=== PATIENT | male | born 1960 | race African-American/Black ===

== ENCOUNTER 2019-05-23 19:23 | Inpatient (IN) | payer MEDICARE, OTHER ==
[~2019-05-23] VITALS: Ht 185.4 cm; Wt 94.3 kg
--- NOTE | 2019-05-23 19:35 | NUR ---
Dr. Hunter at bedside for MSE.
[2019-05-23] MEDS ORDERED: HYDROCODONE/APAP 10-325 MG TABLET PO ONE (19:45)
[2019-05-23] MEDS ORDERED: LORAZEPAM 0.5 MG TABLET PO ONE (19:45)
[2019-05-23] MEDS ORDERED: HALOPERIDOL LACTATE 5 MG/1 ML VIAL IV ONE (19:45)
[2019-05-23] MEDS ORDERED: CLON0.5T PO (19:48)
[2019-05-23] MEDS ORDERED: RISP3TAB5 PO (19:48)
[2019-05-23] MEDS ORDERED: QUET200T PO (19:48)
[2019-05-23] MEDS ORDERED: LORAZEPAM 1 MG TABLET ONE (19:55)
[2019-05-23] MEDS ORDERED: HYDROCODONE/APAP 10-325 MG TABLET ONE (19:55)
--- NOTE | 2019-05-23 19:55 | NUR ---
Xray at bedside.
[2019-05-23 19:56] LABS: BASOPHILS % (AUTO) 0.5 % (0.0-2.0); EOSINOPHILS # (AUTO) 0.1 K/uL (0.0-0.7); EOSINOPHILS % (AUTO) 0.7 % (0.0-7.0); HEMATOCRIT 41.2 % (36.7-47.1); HEMOGLOBIN 13.9 g/dL (12.5-16.3); LYMPHOCYTES # (AUTO) 2.3 K/uL (20.0-40.0); LYMPHOCYTES % (AUTO) 28.6 % (20.5-51.5); MEAN CORPUSCULAR HEMOGLOBIN 31.5 uug (23.8-33.4); MEAN CORPUSCULAR HGB CONC 34 g/dL (32.5-36.3); MEAN CORPUSCULAR VOLUME 93.1 fL (73.0-96.2); MONOCYTES # (AUTO) 0.8 K/uL (2.0-10.0); MONOCYTES % (AUTO) 9.7 % (0.0-11.0); NEUTROPHILS % (AUTO) 60.5 % (38.5-71.5); PLATELET COUNT (AUTO) 236 K/uL (152-348); RED BLOOD CELL COUNT(AUTO) 4.42 MIL/uL (4.06-5.63); WHITE BLOOD COUNT (AUTO) 8.2 K/uL (3.6-10.2)
[2019-05-23] MEDS ORDERED: HALOPERIDOL LACTATE 5 MG/1 ML VIAL ONE (19:57)
[2019-05-23] MEDS ORDERED: IV NORMAL SALINE 1000 ML BAG IV ONE (20:00)
[2019-05-23 20:05] LABS: CARBON DIOXIDE 23 mmol/L (21-32); CHLORIDE 106 mmol/L (98-107); CREATININE 0.9 mg/dL (0.6-1.3); GLUCOSE 226 mg/dL (74-106); POTASSIUM 3.4 mmol/L (3.5-5.1); UREA NITROGEN, BLOOD 17 mg/dL (7-18)
[2019-05-23 20:07] LABS: ETHANOL < 3 MG/DL (0-0)
[2019-05-23 20:09] LABS: ALANINE AMINOTRANSFERASE 25 U/L (16-63); ALKALINE PHOSPHATASE 72 U/L (50-136); ASPARTATE AMINOTRANSFERASE 22 U/L (15-37); BILIRUBIN,DIRECT 0.1 mg/dL (0.0-0.2); BILIRUBIN,TOTAL 0.4 mg/dL (0.2-1.0); TOTAL PROTEIN, SERUM 7.3 g/dL (6.4-8.2)
[2019-05-23 20:10] LABS: ACETAMINOPHEN < 2.0 ug/mL (10-30)
--- NOTE | 2019-05-23 20:20 | NUR ---
Pt medically cleared by Dr. Hunter
[2019-05-23 20:23] LABS: THYROID STIMULATING HORMONE 3.151 mIU/mL (0.358-3.740)
[2019-05-23] MEDS ORDERED: POTASSIUM CHLORIDE 20 MEQ TAB.PRT.SR PO ONE (20:30)
[2019-05-23] MEDS ORDERED: POTASSIUM CHLORIDE 20 MEQ TAB.PRT.SR ONE (20:32)
--- NOTE | 2019-05-23 21:41 | NUR ---
Report given to Zane JAMISON Vita.
[2019-05-23 22:02] VITALS: BP 168/90
--- NOTE | 2019-05-23 22:05 | NUR ---
GPS: 59 years old male admitted from ER under Dr. MARSH for 5150 DTO/GD to MHU via w/c. Patient is alert and oriented x3 ambulatory,cooperative with care.patient noted disorganized. no c/o pain or discomfort at this time. patient blood pressure 168/90 hr 104,resp 20 temp 98.4 sat 96% in room air. Blood sugar 252mg/dl. ABNORMAL V/S AND BLOOD SUGAR result notified to Dr. SIMI FIGUEROA via phone.assisted patient in bed.continue monitoring for safety.
[2019-05-23] MEDS ORDERED: ACETAMINOPHEN 325 MG TABLET PO PRN (22:15)
[2019-05-23] MEDS ORDERED: CLONAZEPAM 0.5 MG TABLET PO PRN (22:15)
[2019-05-23] MEDS ORDERED: MAGNESIUM HYDROXIDE 30 ML LIQUID UDC PO PRN (22:15)
[2019-05-23] MEDS ORDERED: MAG HYDROX/AL HYDROX/SIMETH 30 ML LIQUID UDC PO PRN (22:15)
[2019-05-23] MEDS ORDERED: TEMAZEPAM 7.5 MG CAPSULE PO PRN (22:15)
[2019-05-23] MEDS ORDERED: BLOOD SUGAR DIAGNOSTIC 1 EACH STRIP VI ONE (22:15)
--- NOTE | 2019-05-23 23:05 | NUR ---
GPS: Dr. keller did not give any order for new admission patient blood sugar 252mg/dl. and high blood pressure 168/90,hr 104. charge nurse made him aware via phone call.
--- NOTE | 2019-05-24 06:13 | NUR ---
GPS: Remain calm and cooperative. no behavior problem noted. self care. took showered. ambulating in hallway. slept 6:30 hrs through the night. continue plan of care.
[2019-05-24 07:30] VITALS: BP 154/82
[2019-05-24] MEDS: DIVALPROEX 250 MG TABLET.DR PO SCH ×3 (12:16→20:06)
[2019-05-24] MEDS: OLANZAPINE ZYDIS 5 MG TAB.RAPDIS PO SCH ×2 (12:16→17:28)
[2019-05-24] MEDS ORDERED: DEXTROSE 50% 50 ML DISP.SYRIN IV PRN (14:00)
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
--- NOTE | 2019-05-24 15:05 | NUR ---
FIREARMS REPORT: [employer] Consultant completed and submitted a [facility] firearms report for 5150 DTO and GD certification. A copy of report has been placed in patient chart.
[2019-05-24 16:00] VITALS: BP 157/86
[2019-05-24] MEDS: BLOOD SUGAR DIAGNOSTIC 1 EACH STRIP VI SCH ×2 (17:22→20:13)
[2019-05-24] MEDS: INSULIN REGULAR, HUMAN 300 UNIT/3 ML VIAL SQ PRN ×2 (17:26→20:16)
[2019-05-24 20:00] VITALS: BP 156/96
[2019-05-25] MEDS: BLOOD SUGAR DIAGNOSTIC 1 EACH STRIP VI SCH ×4 (06:47→20:03)
[2019-05-25 07:30] VITALS: BP 162/96
[2019-05-25] MEDS: OLANZAPINE ZYDIS 5 MG TAB.RAPDIS PO SCH ×2 (08:06→17:21)
[2019-05-25] MEDS: DIVALPROEX 250 MG TABLET.DR PO SCH ×4 (08:07→20:03)
[2019-05-25] MEDS: INSULIN REGULAR, HUMAN 300 UNIT/3 ML VIAL SQ PRN ×2 (08:12→13:09)
[2019-05-25] MEDS ORDERED: DEXTROSE 50% 50 ML DISP.SYRIN IV PRN (14:15)
[2019-05-25] MEDS: AMLODIPINE 5 MG TABLET PO SCH (15:37)
[2019-05-25 15:44] VITALS: BP 159/87
[2019-05-25] MEDS: INSULIN REGULAR, HUMAN 300 UNITS/3 ML VIAL SQ PRN (20:02)
--- NOTE | 2019-05-25 20:49 | NUR ---
Dr Wolff paged regarding Pt's elevated BP. Awaiting response.
--- NOTE | 2019-05-25 20:53 | NUR ---
Clonidine patch 0.1 mg ordered
[2019-05-25] MEDS ORDERED: CLONIDINE-TTS 1 PATCH TD SCH (21:00)
[2019-05-25 21:04] VITALS: BP 181/89
[2019-05-25 21:09] VITALS: BP 181/89
[2019-05-25] MEDS ORDERED: CLONIDINE-TTS 1 PATCH TD ONE (21:22)
--- NOTE | 2019-05-25 21:28 | NUR ---
Pt offered Clonidine patch and awoke irritable and refused patch. Will re-offer.
--- NOTE | 2019-05-26 05:58 | NUR ---
Pt refused BP check this morning, remains irritable. Denies any s/s related to elevated BP.
[2019-05-26] MEDS: BLOOD SUGAR DIAGNOSTIC 1 EACH STRIP VI SCH ×4 (06:39→20:16)
--- NOTE | 2019-05-26 06:39 | NUR ---
Pt again refused clonidine patch when offered, stated, "I'm only here for placement."
[2019-05-26 07:30] VITALS: BP 163/90
[2019-05-26] MEDS: OLANZAPINE ZYDIS 5 MG TAB.RAPDIS PO SCH (08:51)
[2019-05-26] MEDS: AMLODIPINE 5 MG TABLET PO SCH (08:52)
[2019-05-26] MEDS: DIVALPROEX 250 MG TABLET.DR PO SCH ×4 (08:52→20:05)
[2019-05-26] MEDS: INSULIN REGULAR, HUMAN 300 UNIT/3 ML VIAL SQ PRN ×3 (08:59→16:23)
[2019-05-26] MEDS ORDERED: AMLODIPINE 5 MG TABLET PO SCH (09:00)
[2019-05-26 15:10] VITALS: BP 176/99
[2019-05-26] MEDS: OLANZAPINE 5 MG TABLET PO SCH (20:04)
--- NOTE | 2019-05-26 20:59 | NUR ---
GPS: B/P 170/77 HR 92 .L made aware via phone, Received ordere clonidine 0.1 mg po x1. charge nurse aware.
[2019-05-26] MEDS ORDERED: CLONIDINE HCL 0.1 MG TABLET PO ONE (21:00)
[2019-05-26] MEDS ORDERED: INSULIN GLARGINE,HUM 300 UNITS/3 ML CARTRIDGE SQ SCH (21:00)
[2019-05-26 21:45] VITALS: BP 170/77
[2019-05-26 22:50] VITALS: BP 145/79
[2019-05-27] MEDS: BLOOD SUGAR DIAGNOSTIC 1 EACH STRIP VI SCH ×4 (06:24→20:51)
--- NOTE | 2019-05-27 06:32 | NUR ---
GPS: Remain calm and cooperative. no behavior problem noted. self care. resting in bed comfortably. slept 8 hrs through the night. continue plan of care.
[2019-05-27 07:30] VITALS: BP 140/73
[2019-05-27] MEDS: DIVALPROEX 250 MG TABLET.DR PO SCH ×4 (09:29→20:34)
[2019-05-27] MEDS: AMLODIPINE 5 MG TABLET PO SCH (09:30)
[2019-05-27] MEDS: OLANZAPINE ZYDIS 5 MG TAB.RAPDIS PO SCH (09:30)
[2019-05-27] MEDS: INSULIN REGULAR, HUMAN 300 UNIT/3 ML VIAL SQ PRN ×2 (09:35→12:51)
[2019-05-27 15:15] VITALS: BP 126/106
[2019-05-27 20:00] VITALS: BP 167/78
[2019-05-27] MEDS: OLANZAPINE 5 MG TABLET PO SCH (20:34)
[2019-05-27] MEDS: INSULIN REGULAR, HUMAN 300 UNITS/3 ML VIAL SQ PRN (20:38)
[2019-05-27] MEDS: INSULIN GLARGINE,HUM 300 UNITS/3 ML CARTRIDGE SQ SCH (20:39)
--- NOTE | 2019-05-27 22:48 | NUR ---
Pt easily irritated and selectively cooperative with care and medication administration. BP elevated 167/78, HR 61. Pt refused Clonodine 0.1mg PO prn for SBP>160. Pt refused BP re-check and became more irritable when asked. Pt denies ant s/s r/t elevated BP. HS BS 177, 3 units coverage administered per SS, and 12 units Lantus per MD order. Will continue to monitor.
[2019-05-28] MEDS: BLOOD SUGAR DIAGNOSTIC 1 EACH STRIP VI SCH ×4 (07:27→20:35)
[2019-05-28 07:30] VITALS: BP 161/80
[2019-05-28] MEDS: OLANZAPINE ZYDIS 5 MG TAB.RAPDIS PO SCH (08:44)
[2019-05-28] MEDS: AMLODIPINE 5 MG TABLET PO SCH (08:44)
[2019-05-28] MEDS: DIVALPROEX 250 MG TABLET.DR PO SCH ×4 (08:45→20:36)
[2019-05-28] MEDS: CLONIDINE HCL 0.1 MG TABLET PO PRN ×2 (08:45→16:32)
[2019-05-28 16:11] VITALS: BP 173/90
[2019-05-28] MEDS: INSULIN REGULAR, HUMAN 300 UNIT/3 ML VIAL SQ PRN (16:31)
[2019-05-28 20:03] VITALS: BP 151/79
[2019-05-28] MEDS: OLANZAPINE 5 MG TABLET PO SCH (20:36)
[2019-05-28] MEDS: INSULIN GLARGINE,HUM 300 UNITS/3 ML CARTRIDGE SQ SCH (20:39)
[2019-05-28] MEDS: INSULIN REGULAR, HUMAN 300 UNITS/3 ML VIAL SQ PRN (20:42)
[2019-05-29] MEDS: BLOOD SUGAR DIAGNOSTIC 1 EACH STRIP VI SCH ×4 (06:42→20:48)
[2019-05-29 07:30] VITALS: BP 135/69
[2019-05-29] MEDS: DIVALPROEX 250 MG TABLET.DR PO SCH ×4 (09:38→20:45)
[2019-05-29] MEDS: AMLODIPINE 5 MG TABLET PO SCH (09:39)
[2019-05-29] MEDS: OLANZAPINE ZYDIS 5 MG TAB.RAPDIS PO SCH (09:39)
[2019-05-29] MEDS: INSULIN REGULAR, HUMAN 300 UNIT/3 ML VIAL SQ PRN ×2 (12:37→17:04)
[2019-05-29 16:00] VITALS: BP 163/81
[2019-05-29 19:00] VITALS: BP 173/69
[2019-05-29] MEDS: CLONIDINE HCL 0.1 MG TABLET PO PRN (19:00)
[2019-05-29] MEDS: OLANZAPINE 5 MG TABLET PO SCH (20:45)
[2019-05-29] MEDS: INSULIN GLARGINE,HUM 300 UNITS/3 ML CARTRIDGE SQ SCH (20:47)
[2019-05-29] MEDS: INSULIN REGULAR, HUMAN 300 UNITS/3 ML VIAL SQ PRN (20:51)
[2019-05-29 21:31] VITALS: BP 140/91
--- NOTE | 2019-05-29 22:00 | NUR ---
received to care, watching tv, pleasant upon approach. no aggressive behavior noted. interacts minimally with peers. compliant with medications and staff direction. bedtime snack given. as of 2200, he appears to be asleep. no distress noted. will continue to monitor closely.
[2019-05-30] MEDS: BLOOD SUGAR DIAGNOSTIC 1 EACH STRIP VI SCH ×5 (06:48→20:35)
--- NOTE | 2019-05-30 06:49 | NUR ---
slept fairly well, last night. this morning, he refused his am blood sugar check. is now angry, and easily agitated. states he is angry, because he doesn't feel he needs to be in the hospital.currently lying in bed, quietly.
[2019-05-30 07:30] VITALS: BP 159/83
[2019-05-30] MEDS: DIVALPROEX 250 MG TABLET.DR PO SCH ×4 (08:30→20:18)
[2019-05-30] MEDS: AMLODIPINE 5 MG TABLET PO SCH (08:30)
[2019-05-30] MEDS: OLANZAPINE ZYDIS 5 MG TAB.RAPDIS PO SCH (08:31)
[2019-05-30] MEDS: INSULIN REGULAR, HUMAN 300 UNIT/3 ML VIAL SQ PRN ×2 (08:33→12:12)
[2019-05-30 16:05] VITALS: BP 142/88
[2019-05-30 20:00] VITALS: BP 175/79
[2019-05-30] MEDS: OLANZAPINE 5 MG TABLET PO SCH (20:18)
[2019-05-30] MEDS: CLONIDINE HCL 0.1 MG TABLET PO PRN (20:20)
[2019-05-30] MEDS: INSULIN GLARGINE,HUM 300 UNITS/3 ML CARTRIDGE SQ SCH (20:38)
[2019-05-30 22:00] VITALS: BP 149/82
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
--- NOTE | 2019-05-30 22:00 | NUR ---
ELEVATED B/P: b/p was 175/79, at 1999. PRN catapres was given at 2019. as of 2199, it is now 149/82.
[2019-05-30 22:33] VITALS: BP 175/79
[2019-05-31] MEDS: BLOOD SUGAR DIAGNOSTIC 1 EACH STRIP VI SCH ×2 (06:35→11:58)
[2019-05-31] MEDS: INSULIN REGULAR, HUMAN 300 UNIT/3 ML VIAL SQ PRN ×2 (08:17→12:15)
[2019-05-31 08:30] VITALS: BP 167/86
[2019-05-31] MEDS: DIVALPROEX 250 MG TABLET.DR PO SCH ×2 (08:33→12:16)
[2019-05-31] MEDS: AMLODIPINE 5 MG TABLET PO SCH (08:33)
[2019-05-31] MEDS: OLANZAPINE ZYDIS 5 MG TAB.RAPDIS PO SCH (08:33)
--- NOTE | 2019-05-31 10:08 | NUR ---
Discharge Note: Patient will be discharged today to [facility] [[address] [place] [address]; ].Please arrange ambulance for this patient at 1:00pm. Spoke to Radha, Motor Scooter Mechanic � who stated facility is ready to accept patient today. Spoke with patient�s LPS conservator � Janneth Maynard [[phone]] who is agreeable with discharge plan. Waxer also informed patient�s [facility] Waxer Emilee Rose [[phone]] for continuity of care. Patient is alert and oriented x3-4. Patient will follow up with Dr. Wolff (Card Sorter) and Dr. Jackson (Psychiatrist). Patient was provided with outpatient mental health resources to [facility] , [facility] Smallwood , and the National Suicide Prevention Lifeline .
--- NOTE | 2019-05-31 11:34 | NUR ---
Gps/Classified Advertising Supervisor- Called [facility], report was given to Nurse Julianne . Patient was well informed of his dc. plan. All belongings given back to patient, no new c/o offered. Ambulance was arranged, shrimp picker time for 1200. facility was informed.
[2019-05-31] MEDS: CLONIDINE HCL 0.1 MG TABLET PO PRN (12:46)
--- NOTE | 2019-05-31 12:46 | NUR ---
Gps/Sales And Service Change Leader- B/P noted patient anxious , catapres 0.1 mg po given, will recheck b/p in few minutes , encouraged pt. to relax. noted irritability during b/p checking by ambulance.
--- NOTE | 2019-05-31 13:34 | NUR ---
Gps/Javascript Ui Developer- Called Mariya (intelligence officer) [facility], informed of the elevated blood pressure this pm, informed PRN catapres 0.1 mg po was administered. also pt. was given clonopin 0.5 mg 1 tab po. for anxiety.Patient anxious about his discharged, reassured. Per DON. ok to transport patient to their facility, its up to the ambulance policy. Asked ambulance transporter, they said it is ok with them to transport pt. since all regimen was done, will monitor.
--- NOTE | 2019-05-31 13:39 | NUR ---
Gps/Medical Technician- Discharged via ambulance with no complaints noted. All belongings given back to patient.
[2019-05-31 13:45] VITALS: BP 183/80
== END 2019-05-31 13:30 | DRG 885 ==
LOC: ER 19:23 → GPS 21:53
PROVIDERS: ADMIT Psychiatry & Neurology Psychiatry; ATTEND Registered Nurse
DX: F25.9 Schizoaffective disorder, unspecified (principal); E11.65 Type 2 diabetes mellitus with hyperglycemia; E44.1 Mild protein-calorie malnutrition; I45.2 Bifascicular block; Z59.0 Homelessness; E87.6 Hypokalemia; E66.9 Obesity, unspecified; Z68.27 Body mass index [BMI] 27.0-27.9, adult; I10 Essential (primary) hypertension
CPT/HCPCS: 36415; 70030-TC; 71045; 80164; 84443; 85025; 93005; A4663; G0480; G0480-TC; J1630; J1815; J3490; J7030